=== PATIENT | male | born 1995 ===

== ENCOUNTER 2017-11-21 14:44 | Emergency (ER) | payer OTHER ==
--- NOTE | 2017-11-21 16:57 | UC ---
Complaint Male HPI - HPI Summary HPI Summary: NOTICED A RAISED FLESH COLORED RASH ON PENIS TODAY. NOT PAINFUL OR ITCHY. HAS HAD UNPROTECTED SEX WITH GF OF 3 MONTHS. DENIES ANY PENILE D/C. NO URINARY SX. - History of Current Complaint Chief Complaint: UCRash Stated Complaint: RASH/PERSONAL Time Seen by Provider: 11/21/17 16:22 Hx Obtained From: Patient Onset/Duration: Sudden Onset, Lasting Hours, Still Present Timing: Constant Severity Initially: Mild Severity Currently: Mild Pain Intensity: 0 Pain Scale Used: 0-10 Numeric Location: Penis Aggravating Factor(s): Nothing Alleviating Factor(s): Nothing Associated Signs And Symptoms: Positive: Negative - Allergies/Home Medications Allergies/Adverse Reactions: Allergies Allergy/AdvReac Type Severity Reaction Status Date / Time SEAFOOD Allergy Anaphylatic Uncoded 11/21/17 15:52 Shock PMH/Surg Hx/FS Hx/Imm Hx Previously Healthy: Yes - Surgical History Surgical History: Yes Surgery Procedure, Year, and Place: WISDOM TEETH - Family History Known Family History: Negative: Hypertension - Social History Alcohol Use: Weekly Substance Use Type: None Smoking Status (MU): Never Smoked Tobacco Review of Systems Constitutional: Negative Skin: Rash Respiratory: Negative Cardiovascular: Negative Gastrointestinal: Negative Genitourinary: Negative All Other Systems Reviewed And Are Negative: Yes Physical Exam Triage Information Reviewed: Yes Appearance: Well-Appearing, No Pain Distress, Well-Nourished Vital Signs: Initial Vital Signs Temp 98.7 F 11/21/17 15:53 Pulse 104 11/21/17 15:53 Resp 20 11/21/17 15:53 BP 142/78 11/21/17 15:53 Pulse Ox 98 11/21/17 15:53 Vital Signs Reviewed: Yes Eyes: Positive: Conjunctiva Clear ENT: Positive: Hearing grossly normal Neck: Positive: Supple Respiratory: Positive: No respiratory distress, No accessory muscle use Cardiovascular: Positive: Pulses Normal Abdomen Description: Positive: Soft Musculoskeletal: Positive: No Edema Neurological: Positive: Alert Psychological: Positive: Age Appropriate Behavior Skin: Positive: Other - RAISED PAPULAR FLESH COLORED RASH ON PENIS JUST PROXIMAL TO GLANS. NOT TENDER. Complaint Male Course/Dx - Differential Dx/Diagnosis Provider Diagnoses: GENITAL WARTS Discharge - Discharge Plan Condition: Stable Disposition: HOME Prescriptions: Imiquimod 5 % EX DAILY #1 jack Patient Education Materials: Genital Warts (ED) Referrals: No Primary Care Phys,NOPCP [Primary Care Provider] - Additional Instructions: WARTS (ANOGENITAL) Human papillomavirus (HPV) is transmitted through contact with infected skin or mucosa. The virus invades the cells of the epidermal basal layer through microabrasions. Anogenital HPV infection is almost always acquired through sexual contact. Warts are not required for transmission but are highly infectious because of their high viral load. Once acquired, HPV infection can enter a latent phase without signs or symptoms. In patients who develop warts, the usual incubation period is three weeks to eight months. After initial appearance, anogenital warts may increase in number and size or regress spontaneously. It is estimated that approximately one-third of anogenital warts regress without treatment within four months. Human papillomavirus (HPV) infection may persist despite resolution of visible warts and may result in wart recurrence. Mechanical irritation, wounding, immunosuppression, inflammation, and other extracellular influences may predispose to reappearance Human papillomavirus (HPV) infection is the most common sexually transmitted disease in the world. At least 75 percent of sexually active adults in the [place] have been infected with at least one genital HPV type at some time. HOW TO USE CONDYLOX GEL Genital and perianal warts: Apply twice daily (morning and evening) for 3 consecutive days, then withhold use for 4 consecutive days; this cycle may be repeated up to 4 times until there is no visible wart tissue; maximum dose: 0.5 g daily (or 10 cm2 of wart tissue). Note: Discontinue after 4 treatment cycles if incomplete response and consider alternative treatment; do not repeat use. IF YOUR SYMPTOMS ARE NOT IMPROVING FOLLOW-UP WITH [facility] OR WITH THE [facility]. [facility] [address] [place] [address] PHONE: [phone]
== END 2017-11-21 16:59 | disposition home or self-care (01) ==
LOC: UCCORT 14:44
DX: A63.0 Anogenital (venereal) warts (principal)
CPT/HCPCS: 99202; G0463